=== PATIENT | male | born 2000 | race Caucasian/White ===

== ENCOUNTER 2018-03-24 17:20 | Emergency (ER) | payer OTHER, BC ==
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
[2018-03-24 17:54] LABS: ANION GAP 9.5; CHLORIDE,CL 107 mmol/L (101-111); SODIUM,NA 138 mmol/L (135-145)
[2018-03-24] MEDS ORDERED: Bacitracin Oint 1 GM U/D Packet TOP ONE (18:43)
[2018-03-24] MEDS ORDERED: Lidocaine 1% 30 ML SDV INJECT ONE (18:43)
== END 2018-03-24 20:17 | disposition home or self-care (01) ==
LOC: DL.ED 17:20
DX: S21.222A Laceration with foreign body of left back wall of thorax without penetration into thoracic cavity, initial encounter (principal); V89.2XXA Person injured in unspecified motor-vehicle accident, traffic, initial encounter
CPT/HCPCS: 12004; 36415; 72040; 72100; 80053; 81001; 85025; 93005; 99284

== ENCOUNTER 2019-01-15 19:00 | Emergency (ER) | payer BC ==
[2019-01-15] MEDS ORDERED: Ondansetron 4 MG Tab.DIS PO ONE (19:01)
[2019-01-15] MEDS ORDERED: Ondansetron 4 MG/2 ML SDV IV ONE (19:51)
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
[2019-01-15 20:08] VITALS: BP 138/65
[2019-01-15] MEDS ORDERED: Bacitracin Oint 1 GM U/D Packet TOP ONE (20:30)
[2019-01-15] MEDS ORDERED: Acetaminophen 325 MG Tab PO ONE (20:31)
[2019-01-15] MEDS ORDERED: Ondansetron 4 MG Tab.DIS ONE (20:36)
== END 2019-01-15 20:51 | disposition home or self-care (01) ==
LOC: DL.ED 19:00
DX: S06.0X9A Concussion with loss of consciousness of unspecified duration, initial encounter (principal); S01.81XA Laceration without foreign body of other part of head, initial encounter; R40.2410 Glasgow coma scale score 13-15, unspecified time; W22.8XXA Striking against or struck by other objects, initial encounter
CPT/HCPCS: 70450; 96374; 99284; A9270; J2405

== ENCOUNTER 2022-02-07 09:15 | Emergency (ER) | payer BC, OTHER ==
[2022-02-07 09:45] VITALS: BP 139/84; PULSE 87
[2022-02-07] MEDS ORDERED: Ibuprofen 600 MG Tab PO ONE (10:15)
== END 2022-02-07 10:28 | disposition home or self-care (01) ==
LOC: DL.ED 09:15
DX: S06.0X0A Concussion without loss of consciousness, initial encounter (principal); R51.9 Headache, unspecified; W22.8XXA Striking against or struck by other objects, initial encounter
CPT/HCPCS: 70450; 99283; A9270; 99284

== ENCOUNTER 2023-07-09 18:11 | Emergency (ER) | payer BC, OTHER ==
[2023-07-09 18:24] VITALS: BP 154/87; PULSE 102
== END 2023-07-09 19:17 | disposition home or self-care (01) ==
LOC: DL.ED 18:11
DX: S49.91XA Unspecified injury of right shoulder and upper arm, initial encounter (principal); M25.531 Pain in right wrist; W00.0XXA Fall on same level due to ice and snow, initial encounter; Y92.59 Other trade areas as the place of occurrence of the external cause; Y99.0 Civilian activity done for income or pay
CPT/HCPCS: 73030-RT; 73110-RT; 99282; 99283

== ENCOUNTER 2023-10-29 17:57 | Emergency (ER) | payer BC, OTHER ==
[2023-10-29 18:33] VITALS: BP 133/63; PULSE 83
== END 2023-10-29 18:31 | disposition home or self-care (01) ==
LOC: DL.ED 17:57
DX: S39.011A Strain of muscle, fascia and tendon of abdomen, initial encounter (principal); X58.XXXA Exposure to other specified factors, initial encounter
CPT/HCPCS: 99283